=== PATIENT | male | born 1990 | race Asian ===

== ENCOUNTER 2016-11-01 21:56 | Emergency (ER) | payer BC ==
[2016-11-01] MEDS ORDERED: TYLENOL PO ONE (22:45)
[2016-11-02] MEDS ORDERED: TRIPLE ANTIBIOTIC TP ONE (05:19)
[2016-11-02] MEDS ORDERED: NORCO 5/325 PO ONE (05:19)
[2016-11-02] MEDS ORDERED: BOOSTRIX IM ONE (05:19)
--- NOTE | 2016-11-02 05:21 | Emergency Department Report ---
- General Chief Complaint: Wound/Laceration Stated Complaint: FINGER LACERATION Time Seen by Provider: 11/02/16 05:17 Source: patient Mode of arrival: Ambulatory Limitations: No Limitations - History of Present Illness Initial Comments: 26-year-old male past medical history boxer's fracture right hand several years ago presents with complaint of cutting area between his fourth and fifth digits on broken glass while washing dishes last night. Patient has hand wrapped in gauze states he has laceration and intertriginous region between fingers. Denies any foreign body sensation. States a glass cup shattered while he was washing dishes. Unaware of His tetanus status denies any other injuries Onset/Timin -: days(s) Extremity Location: Right: Hand (between fourth and fifth fingers right hand) Place: home Patient Tetanus UTD: No Context: accidental Associated Symptoms: none - Related Data Previous Rx's Medication Instructions Recorded Last Taken Type Cephalexin [Keflex] 500 mg PO QDAY #10 capsule 11/02/16 Unknown Rx Ibuprofen [Motrin] 600 mg PO Q8H PRN #25 tablet 11/02/16 Unknown Rx Allergies Allergy/AdvReac Type Severity Reaction Status Date / Time No Known Allergies Allergy Verified 11/01/16 22:06 ED Review of Systems ROS: Stated complaint: FINGER LACERATION Other details as noted in HPI Constitutional: denies: chills, fever Eyes: denies: eye pain, eye discharge, vision change ENT: denies: ear pain, throat pain Respiratory: denies: cough, shortness of breath, wheezing Cardiovascular: denies: chest pain, palpitations Endocrine: no symptoms reported Gastrointestinal: denies: abdominal pain, nausea, diarrhea Genitourinary: denies: urgency, dysuria Musculoskeletal: denies: back pain, joint swelling, arthralgia Skin: denies: rash, lesions Neurological: denies: headache, weakness, paresthesias Psychiatric: denies: anxiety, depression Hematological/Lymphatic: denies: easy bleeding, easy bruising ED Past Medical Hx - Past Medical History Previous Medical History?: No - Surgical History Past Surgical History?: Yes Additional Surgical History: JAW - Social History Smoking Status: Current Every Day Smoker Substance Use Type: Alcohol - Medications Home Medications: Home Medications Medication Instructions Recorded Confirmed Last Taken Type Cephalexin [Keflex] 500 mg PO QDAY #10 capsule 11/02/16 Unknown Rx Ibuprofen [Motrin] 600 mg PO Q8H PRN #25 tablet 11/02/16 Unknown Rx ED Physical Exam - General Limitations: No Limitations General appearance: alert, in no apparent distress - Head Head exam: Present: atraumatic, normocephalic - Eye Eye exam: Present: normal appearance, PERRL, EOMI - ENT ENT exam: Present: mucous membranes moist - Neck Neck exam: Present: normal inspection - Respiratory Respiratory exam: Present: normal lung sounds bilaterally. Absent: respiratory distress - Cardiovascular Cardiovascular Exam: Present: regular rate, normal rhythm. Absent: systolic murmur, diastolic murmur, rubs, gallop - GI/Abdominal GI/Abdominal exam: Present: soft, normal bowel sounds - Rectal Rectal exam: Present: deferred - Extremities Exam Extremities exam: Present: normal inspection - Expanded Upper Extremity Exam Right Shoulder Exam: Present: normal inspection, full ROM Upper Arm exam: Present: normal inspection, full ROM Hand Wrist exam: Present: laceration (1 inch laceration between fourth and fifth digits right hand) - Back Exam Back exam: Present: normal inspection - Neurological Exam Neurological exam: Present: alert, oriented X3 - Psychiatric Psychiatric exam: Present: normal affect, normal mood - Skin Skin exam: Present: warm, dry, intact, normal color. Absent: rash ED Course Vital Signs 11/01/16 11/02/16 11/02/16 22:06 01:43 04:13 Temperature 98.8 F Pulse Rate 83 96 H 91 H Respiratory 20 18 18 Rate Blood Pressure 119/86 104/70 126/87 O2 Sat by Pulse 98 96 95 Oximetry - Laceration /Wound Repair Right Hand Wound Location: upper extremity Wound Length (cm): 2 Wound's Depth, Shape: superficial Wound Explored: clean Irrigated w/ Saline (ccs): 50 Betadine Prep?: Yes Anesthesia: 1% Lidocaine Volume Anesthetic (ccs): 6 Wound Debrided: minimal Wound Repaired With: sutures Suture Size/Type: 4:0, nylon Number of Sutures: 5 Deep Layer Suture Size/Type: 4:0, chromic Number Deep Layer Sutures: 1 Sterile Dressing Applied?: Yes (triple antibiotic ointment with gauze) ED Medical Decision Making - Medical Decision Making A/P: Laceration intertriginous region 1-good closure achieved, 5 external sutures placed one internal suture placed no neurovascular compromise of digits or hand, good capillary refill sensation and proprioception fully intact. No foreign body found on exploration of wound using forceps 2-tetanus updated 3-Keflex 500 mg twice a day 5 days, Motrin when necessary area triple antibiotic ointment local wound care 4-just to be removed in 7-10 days. I advised patient to return to the ED for any pus drainage or redness of site suggestive of infection Critical care attestation.: If time is entered above; I have spent that time in minutes in the direct care of this critically ill patient, excluding procedure time. ED Disposition Clinical Impression: Hand laceration Qualifiers: Encounter type: initial encounter Laterality: right Qualified Code(s): S61.411A - Laceration without foreign body of right hand, initial encounter Disposition: DISCHARGED TO HOME OR SELFCARE Is pt being admited?: No Does the pt Need Aspirin: No Condition: Stable Instructions: Laceration (ED), Suture Care (ED) Prescriptions: Cephalexin [Keflex] 500 mg PO QDAY #10 capsule Ibuprofen [Motrin] 600 mg PO Q8H PRN #25 tablet PRN Reason: Pain Referrals: [facility] [Outside] - 3-5 Days Forms: Accompanied Note, Work/School Release Form(ED) Time of Disposition: 06:09
[2016-11-02] MEDS ORDERED: XYLOCAINE 1%/ EPI 1:100,000 INFILTRATI NR (06:00)
[2016-11-02 06:17] VITALS: BP 124/88
--- NOTE | 2016-11-02 07:45 | XRay Report ---
Right hand 3 views: History: Laceration, pain. Findings: No fracture, periosteal reaction or lytic lesion. Deformity of the neck of the fifth metacarpal may be related to old injury or could be congenital. Arthritic changes are noted at the first metacarpophalangeal joint. No periosteal reaction. Impression: Findings as detailed above.
== END 2016-11-02 06:17 | disposition home or self-care (01) ==
LOC: ED 21:56
DX: S61.411A Laceration without foreign body of right hand, initial encounter (principal); F17.200 Nicotine dependence, unspecified, uncomplicated; W25.XXXA Contact with sharp glass, initial encounter; Y93.89 Activity, other specified; Y99.8 Other external cause status; Y92.098 Other place in other non-institutional residence as the place of occurrence of the external cause
CPT/HCPCS: 90471; 90715; A6250